=== PATIENT | female | born 1940 | race Hispanic/Latino ===

== ENCOUNTER 2017-07-30 09:17 | Outpatient (CLI) | payer MEDICARE, MEDICAID | END 2017-07-30 09:18 | disposition home or self-care (01) | LOC: CTENTCT 09:17 | PROVIDERS: ATTEND Otolaryngology Plastic Surgery within the Head & Neck | DX: J01.90 Acute sinusitis, unspecified (principal) | CPT/HCPCS: 70486 ==

== ENCOUNTER 2017-11-26 09:49 | Outpatient (CLI) | payer MEDICARE, MEDICAID ==
[~2017-11-26 09:49] MED LIST: ISOVUE-370 76%-LOCM 1 ML ONE
== END 2017-11-26 09:50 | disposition home or self-care (01) ==
LOC: BICCT 09:49
PROVIDERS: ATTEND Family Medicine
DX: R13.14 Dysphagia, pharyngoesophageal phase (principal); M54.2 Cervicalgia
CPT/HCPCS: 70491

== ENCOUNTER 2018-05-11 09:13 | Observation (INO) | payer MEDICARE, OTHER ==
[2018-05-11 09:46] LABS: #Eosinphils 0.1 thou/uL (0.0-0.7); #Lymphocytes 2.6 thou/uL (1.20-3.40); #Monocytes 0.5 thou/uL (0.11-0.59); #Neutrophils 3.3 thou/uL (1.40-6.50); %Basophils 0.6 % (0.0-1.0); %Eosinophils 1.2 % (0.0-10.0); %Lymphocytes 40.7 % (21.0-51.0); %Monocytes 7.2 % (0.0-10.0); %Neutrophils 50.3 % (42.0-75.0); Hemoglobin 16.6 g/dL (12.0-16.0); Mean Corpuscular HGB CONC 34.4 g/dL (32.0-36.0); Mean Corpuscular Hemoglobin 33.2 pg (27.0-31.0); Mean Corpuscular Volume 96.3 fL (78.0-98.0); Mean Platelet Volume 7.3 fL (7.4-10.4); Platelet Count 286 thou/uL (130-400); RBC Distribution Width 12.3 % (11.5-14.5); Red Blood Cell (RBC) Count 5.02 mill/uL (4.20-5.40); White Blood Cell (WBC) Count 6.5 thou/uL (4.8-10.8)
[2018-05-11] MEDS ORDERED: Aspirin Chewable 81 MG TAB ONE (10:00)
[2018-05-11] MEDS ORDERED: Nitroglycerin 2% Ointment 1 INCH/1 GM Packet ONE (10:01)
--- NOTE | 2018-05-11 10:10 | RAD ---
CHEST 1 VIEW: Date: 05/11/18 HISTORY: Palpitations. COMPARISON: 06/16/16. FINDINGS: Cardiac silhouette is magnified by projection. Pulmonary vasculature upper limits of normal. Mediasti num is midline. No lobar consolidation or evidence of pneumothorax. Elevation of the right humeral he ad has the appearance of a chronic rotator cuff tear. security monitor leads overlie the chest. IMPRESSION: Chronic-type findings as detailed above. No active cardiopulmonary abnormalities are demonstrated. POS: ELINOR
[2018-05-11 10:12] LABS: ALT (SGPT) 24 U/L (8-55); AST (SGOT) 19 U/L (5-34); Albumin 4.8 g/dL (3.4-4.8); Alkaline Phosphatase 104 U/L (40-150); Anion Gap 16 mmol/L (10-20); BUN (Urea Nitrogen) 12 mg/dL (9.8-20.1); Bilirubin, Total 0.7 mg/dL (0.2-1.2); CK (CPK) 82 U/L (29-168); Calc. Creatinine Clearance 0 mL/min (70-130); Calcium 10.6 mg/dL (7.8-10.44); Carbon Dioxide 23 mmol/L (23-31); Chloride 102 mmol/L (98-107); Estimated GFR-MDRD 75; Globulin 3.6 g/dL (2.4-3.5); Glucose 107 mg/dL (83-110); Lipase 38 U/L (8-78); Potassium 3.9 mmol/L (3.5-5.1); Protein, Total 8.4 g/dL (6.0-8.3); Sodium 137 mmol/L (136-145)
[2018-05-11] MEDS ORDERED: Acetaminophen 500 MG TAB ONE (10:26)
[2018-05-11] MEDS ORDERED: Nitroglycerin 0.4 MG TAB (25 Tab Bottle) PO PRN (12:10)
[2018-05-11] MEDS ORDERED: Bisacodyl 5 MG TAB PO PRN (12:10)
[2018-05-11] MEDS ORDERED: cloNIDine 0.1 MG TAB PO PRN (12:10)
[2018-05-11] MEDS ORDERED: hydrALAZINE 20 MG/ML VIAL SLOW IVP PRN (12:10)
[2018-05-11] MEDS ORDERED: Acetaminophen 325 MG TAB PO PRN (12:10)
[2018-05-11] MEDS ORDERED: Diabetic Tussin 200 MG/10 ML UDCUP PO PRN (12:10)
[2018-05-11] MEDS ORDERED: Senokot S 8.6-50 MG TAB PO PRN (12:10)
[2018-05-11] MEDS ORDERED: Ondansetron PF 4 MG/2 ML Vial IVP PRN (12:10)
[2018-05-11] MEDS ORDERED: Benzonatate 100 MG CAP PO PRN (12:10)
--- NOTE | 2018-05-11 13:06 | HP ---
PRIMARY CARE PHYSICIAN: Stacey Chase MD CHIEF COMPLAINT: Chest pressure, headache, and high blood pressure. HISTORY OF PRESENTING ILLNESS: Ms Ochoa is a very pleasant 77-year-old female with past medical history of hypertension and dyslipidemia, who presented to the emergency room with above-mentioned complaint. History is mainly obtained by the patient herself with the help of her granddaughter, who is interpreting for me. According to the granddaughter, the patient usually is very active and has been in her usual health, except for some cough for the last 2 or 3 weeks. She was seen by Dr. Chase only yesterday. This morning when she woke up, she complained of significant pain in the back of her head associated with some nausea and anxiety and chest pressure. Her granddaughter checked her blood pressure and was elevated to 170s/110s. The patient has not taken any of her blood pressure medications by then. She was brought to the emergency room because of uncontrolled hypertension and chest pressure. She reports that when she takes her blood pressure medications in the morning, she feels sick to her stomach. She was told by her primary care physician to space out these medications throughout the day, so she does not get too many side effects. In the emergency room, her initial workup is unremarkable. She has no EKG changes to suggest ST-T wave changes. Her initial cardiac enzymes are unremarkable. Her chest x-ray is unremarkable as well. She is now being admitted for further workup and rule out ACS. She has had a nuclear medicine stress test in June 2016, which was negative. She denies any other recent illnesses other than the cough. She does have some left upper abdominal pain, probably from excessive coughing. She also complains of some epigastric discomfort. Her granddaughter reports excessive anxiety, but otherwise, she is fairly healthy and active for her age. CODE STATUS: Full code discussed with the patient in extensive detail. For which, she wanted to be a do not resuscitate, but when she was explained about the meaning and difference of full code versus do not resuscitate: She chose to be a full code. PAST MEDICAL HISTORY: Gastritis, dyslipidemia, hypertension. PAST SURGICAL HISTORY: Appendectomy, cholecystectomy, hysterectomy, venous surgeries. FAMILY HISTORY: No significant family history of coronary artery disease. CODE STATUS: Full code. ALLERGIES: BACTRIM. HOME MEDICATIONS: 1. Losartan 25 mg daily. 2. Amlodipine 5 mg daily. 3. Cardizem extended release 120 mg daily. 4. Aspirin 81 mg daily. 5. Xanax unknown dose. 6. Possibly, cholesterol medication. REVIEW OF SYSTEMS: A 12-point review of system is done, it is negative except for those mentioned in the history and physical. LABORATORY DATA: Her CBC is unremarkable. Serum chemistries unremarkable. Troponin less than 0.010. BNP normal. Lipase normal. Chest x-ray by my review has no evidence to suggest any pleural effusion, edema, or infiltrate. She has appearance of a chronic rotator cuff tear injury on the right humeral head according to the radiologist. A 12-lead EKG by my review shows no acute ST or T-wave changes. Sinus rhythm. PHYSICAL EXAMINATION: VITAL SIGNS: Stable. Most recent blood pressure 137/67, heart rate in the 70s. Afebrile. Oxygen saturation 98% on room air. GENERAL: No acute distress. Awake, alert, and oriented x3. HEENT: Mucous membrane is moist and pink. No oropharyngeal exudate or erythema. Head is normocephalic and atraumatic. Pupils are equal and reactive to light and accommodation. Extraocular movement intact. NECK: Supple without any lymphadenopathy, JVD, or bruit. CHEST: Clear to auscultation without any wheezing, rales, or rhonchi. HEART: Rhythm is regular without any murmurs or gallops. ABDOMEN: Soft, nontender, nondistended. Positive bowel sounds. EXTREMITIES: Free of any cyanosis, clubbing, or edema. NEUROLOGIC: Nonfocal. SKIN: Free of any rashes or bruises. Feels warm and dry to touch. PSYCHIATRIC: Normal affect. IMPRESSION AND PLAN: 1. Chest pain, most likely secondary to uncontrolled hypertension. The symptoms are resolved quickly. She did get aspirin and nitroglycerin transdermal in the emergency room. Her blood pressure is under better control now. She is eager to go home. Because of multiple risk factors, we will keep her under observation and perform a nuclear medicine stress test. The patient's family is agreeable to that. We will restart her home medication, provide optimal blood pressure control. We will also check a lipid panel. 2. Uncontrolled hypertension. The patient will restart her home medication while she is here. As advised by her primary care physician, she should space out her blood pressure medication as she reports significant side effects. She was advised to take one blood pressure medication with each meal as all three of them are once a day dosing. She will also be treated with p.r.n. antihypertensives if necessary. 3. Dyslipidemia. Restart home medications once confirmed. 4. Abdominal epigastric discomfort. We will start her on proton pump inhibitor, most likely gastritis from daily dose of aspirin. 5. Left upper quadrant abdominal pain, most likely secondary to excessive coughing. This is a muscular pain. We will check a urinalysis to make sure she is not developing a urinary tract infection. 6. Deep venous thrombosis and gastrointestinal prophylaxis and walking program. 7. Code status; full code. DISPOSITION: Ms. Ochoa is currently being admitted to rule out ACS. Estimated length of stay is less than two midnights. Further management will depend upon her clinical course. She is hemodynamically stable. Job ID: [id number]
[2018-05-11 13:16] LABS: Troponin I Less than 0.010 ng/mL (< 0.028)
[2018-05-11 16:12] LABS: Troponin I Less than 0.010 ng/mL (< 0.028)
[2018-05-11 16:38] VITALS: BMI 29.7
[2018-05-11] MEDS ORDERED: ALPRAZolam 0.25 MG TAB PO PRN (16:48)
[2018-05-11] MEDS: Losartan 25 MG TAB PO SCH (17:04)
[2018-05-12 01:25] LABS: Bilirubin Negative (Negative); Blood, Urine Negative (Negative); Clarity CLEAR (Clear); Glucose, Urine (Dipstick) Negative (Negative); Leukocyte Negative (Negative); Nitrite Negative (Negative); Protein, Urine (Dipstick) Negative (Neg-Trace); Specific Gravity, Urine 1.008 (1.002-1.036); Urobilinogen 0.2 mg/dL (0.2-1.0)
[2018-05-12 01:28] LABS: Bacteria/HPF None Seen HPF (None Seen); Hyaline Casts/LPF 0-3 HYALINE CAST LPF (0-3 Hyaline); RBC/HPF 0-3 HPF (0-3); Squamous Epithelial None Seen HPF (0-3); WBC/HPF None Seen HPF (0-3)
[2018-05-12 05:58] LABS: Anion Gap 13 mmol/L (10-20); BUN (Urea Nitrogen) 15 mg/dL (9.8-20.1); Calc. Creatinine Clearance 62 mL/min (70-130); Calcium 9.7 mg/dL (7.8-10.44); Carbon Dioxide 27 mmol/L (23-31); Chloride 104 mmol/L (98-107); Estimated GFR-MDRD 71; Glucose 96 mg/dL (83-110); Potassium 4.5 mmol/L (3.5-5.1); Sodium 139 mmol/L (136-145)
[2018-05-12 06:27] LABS: Cardiac Risk 4.2 (Less than 4.5)
[2018-05-12] MEDS: Losartan 25 MG TAB PO SCH (08:10)
[2018-05-12] MEDS ORDERED: Aspirin 325 mg Enteric Coated Tablet PO SCH (09:00)
[2018-05-12] MEDS ORDERED: Fish Oil 1,000 MG CAP PO SCH (09:00)
[2018-05-12] MEDS ORDERED: Amlodipine 5 MG TAB PO SCH (09:00)
[2018-05-12] MEDS ORDERED: ADENOSINE 60 MG/20 ML VIAL ONE (10:21)
--- NOTE | 2018-05-12 18:26 | NM ---
MYOCARDIAL PERFUSION AND QUANTITATIVE GATED SPECT STUDY: HISTORY: Chest pain. DOSE: Technetium 99m Cardiolite 27.5 millicuries for the stress portion of the exam, and 9.6 millicuries fo r the resting portion of the exam. TECHNIQUE: The patient was stressed using 36.4 mg of adenosine, given IV. FINDINGS: Myocardial perfusion and quantitative gated SPECT study demonstrates no definite evidence of reversib le defects seen. No definite evidence of myocardial ischemia or scar seen. Ejection fraction measures 87%. IMPRESSION: Normal myocardial perfusion and quantitative gated SPECT study. POS: ELINOR
[2018-05-12 18:48] VITALS: BP 140/83; TEMP 98.1
[2018-05-12] MEDS ORDERED: ALPRAZolam 0.25 MG TAB PO SCH (21:00)
--- NOTE | 2018-05-13 13:43 | DIS ---
DATE OF ADMISSION: 05/11/2018 DATE OF DISCHARGE: 05/12/2018 CONDITION: At the time of discharge, stable and improved. DISCHARGE DIAGNOSES: 1. Chest discomfort secondary to uncontrolled hypertension, acute coronary syndrome, ruled out. 2. Uncontrolled hypertension. 3. Dyslipidemia. DISCHARGE MEDICATIONS: Discharge medications remain the same as the admission medications. No changes were made. No new medications. Please see my H and P for further details of the full list. She takes; 1. Losartan. 2. Aspirin. 3. Amlodipine. 4. Diltiazem daily. PROCEDURES DONE IN HOSPITAL: Nuclear medicine stress test, which is negative for any reversible or fixed ischemia. EF 87%. PRIMARY CARE PHYSICIAN: Stacey Chase MD HISTORY OF PRESENT ILLNESS: Ms. Ochoa is a very pleasant 77-year-old female with history of hypertension and dyslipidemia as well as anxiety, who presented to the ER with complaints of chest pressure, headache, and high blood pressure. She was quite hypertensive upon presentation with blood pressure 170s/110s. In the ER, she had normal EKG and cardiac enzymes within normal limit as well as negative chest x-ray for acute changes. She was admitted for rule out ACS and blood pressure control. Please see admission history and physical dictated by myself for further details. HOSPITAL COURSE: Ms. Ochoa was restarted on her blood pressure medications and had an uneventful hospital course. She underwent a nuclear medicine stress test to rule out ACS and serial cardiac enzymes were done. Both of them had normal results. Her blood pressure medications are spaced apart, so she takes one with each meal and not take them altogether. Her lipid panel did show poor control with triglycerides high at 183 and cholesterol at 222. As she is already on medication, she is instructed to modify her lifestyle and dietary habits. She was seen and examined prior to discharge and is asymptomatic and eager to go home. PHYSICAL EXAMINATION: VITAL SIGNS: Stable with blood pressure of 140/83, saturating 95% on room air, and heart rate 82. GENERAL: No acute distress. Lying comfortably in bed. CHEST: Clear to auscultation bilaterally. HEART: Rate and rhythm are regular. FOLLOWUP: She is instructed to follow up with primary care physician in 1 to 2 weeks. DISCHARGE PLAN: Discharge plan was discussed with the patient and her granddaughter present in the room and they verbalized understanding. Job ID: [id number]
== END 2018-05-12 18:52 | disposition home or self-care (01) ==
LOC: ERS 09:13 → ERHOLD 10:52 → 2SW 11:27
PROVIDERS: ADMIT Internal Medicine; ATTEND Internal Medicine
DX: I10 Essential (primary) hypertension (principal); E78.5 Hyperlipidemia, unspecified; K29.70 Gastritis, unspecified, without bleeding; Z90.49 Acquired absence of other specified parts of digestive tract; Z90.710 Acquired absence of both cervix and uterus; Z88.2 Allergy status to sulfonamides; Z79.82 Long term (current) use of aspirin; Z79.899 Other long term (current) drug therapy; Z98.890 Other specified postprocedural states
CPT/HCPCS: 71045; 78452; 80048; 80053; 80061; 81001; 82550; 83690; 83880; 84484 ×2; 85025; 93005; 93017; 94760; 97139; 99285; A9500; G0378 ×2; 36415; J0153

== ENCOUNTER 2018-05-21 07:50 | Outpatient (CLI) | payer MEDICARE, OTHER ==
[2018-05-21] MEDS ORDERED: ISOVUE-370 76%-LOCM 1 ML ONE (11:24)
--- NOTE | 2018-05-21 11:32 | CT ---
CT ABDOMEN AND PELVIS WITH ORAL AND IV CONTRAST: Date: 05/21/18 HISTORY: 77-year-old female with abdominal wall bulge and left-sided abdominal pain. COMPARISON: 06/16/16 and 04/12/16. FINDINGS: The lung bases are unremarkable. Changes of mild fatty infiltration of the liver again seen without f ocal mass or abnormal biliary ductal dilatation. The spleen, pancreas, and adrenal glands are normal. Tiny cysts in the kidneys are redemonstrated. The patient is post cholecystectomy, appendectomy, and hysterectomy. No free air, free fluid, or lymphadenopathy seen in the abdomen or pelvis. The small bowel loops are not abnormally dilated. There is colonic diverticulosis without evidence of diverticulitis. Vascular calcifications are present without evidence of aneurysmal dilatation of the abdominal aorta. There ar e degenerative changes in the spine. No abdominal wall hernia is identified. IMPRESSION: 1. Mild fatty infiltration of the liver. 2. Tiny renal cysts. 3. Colonic diverticulosis. 4. No evidence of abdominal wall hernia. POS: OFF
== END 2018-05-21 07:51 | disposition home or self-care (01) ==
LOC: BICCT 07:50
PROVIDERS: ATTEND Family Medicine
DX: R19.00 Intra-abdominal and pelvic swelling, mass and lump, unspecified site (principal); K57.30 Diverticulosis of large intestine without perforation or abscess without bleeding; N28.1 Cyst of kidney, acquired; K76.0 Fatty (change of) liver, not elsewhere classified
CPT/HCPCS: 74177; Q9966

== ENCOUNTER 2018-08-13 09:05 | Outpatient (CLI) | payer MEDICARE, MEDICAID ==
--- NOTE | 2018-08-13 12:37 | RAD ---
RADIOGRAPH RIGHT SHOULDER 3 VIEWS: 08/13/18 HISTORY: 77-year-old female with persistent subacute posttraumatic pain after fall one month ago. FINDINGS: No evidence of fracture. No dislocation. Severe DJD at AC joint. Moderate DJD at glenohumeral joint. IMPRESSION: 1. No fracture. 2. High grade osteoarthrosis. POS: TPC
--- NOTE | 2018-08-13 12:39 | RAD ---
RADIOGRAPH RIGHT ELBOW 4 VIEWS: 08/13/18 HISTORY: 77-year-old female with persistent posttraumatic elbow pain after fall one month ago. FINDINGS: No fracture or dislocation. Enthesophytes at medial and lateral epicondyles, dorsal surface of olecra non, and at coracoid process. IMPRESSION: 1. Mild enthesopathy. 2. Otherwise negative. POS: TPC
== END 2018-08-13 09:06 | disposition home or self-care (01) ==
LOC: BICRAD 09:05
PROVIDERS: ATTEND Family Medicine
DX: M25.511 Pain in right shoulder (principal); M25.521 Pain in right elbow; M19.011 Primary osteoarthritis, right shoulder; M77.9 Enthesopathy, unspecified

== ENCOUNTER 2019-05-31 10:05 | Observation (INO) | payer MEDICARE, MEDICAID ==
[2019-05-31] MEDS ORDERED: Nitroglycerin 2% Ointment 1 INCH/1 GM Packet ONE (10:37)
[2019-05-31] MEDS ORDERED: Aspirin Chewable 81 MG TAB ONE (10:37)
[2019-05-31] MEDS ORDERED: Metoprolol Tartrate 5 MG/5 ML VIAL ONE (10:37)
--- NOTE | 2019-05-31 10:44 | RAD ---
PORTABLE CHEST: HISTORY: Chest pain. COMPARISON: 05/11/2018 exam. FINDINGS: Heart size is within normal limits. There are atherosclerotic changes of the aorta. Lungs are clear of any infiltrative process. The bones are demineralized. Changes of a chronic rotator cuff tear o f the right shoulder are noted. IMPRESSION: No active intrathoracic disease. POS: TPC
[2019-05-31 10:49] LABS: #Eosinphils 0.1 thou/uL (0.0-0.7); #Monocytes 0.4 thou/uL (0.11-0.59); #Neutrophils 3.7 thou/uL (1.40-6.50); %Basophils 0.6 % (0.0-1.0); %Lymphocytes 31.8 % (21.0-51.0); %Monocytes 7.1 % (0.0-10.0); %Neutrophils 59.5 % (42.0-75.0); Hemoglobin 16.7 g/dL (12.0-16.0); Mean Corpuscular HGB CONC 33.7 g/dL (32.0-36.0); Mean Corpuscular Hemoglobin 33.1 pg (27.0-31.0); Mean Corpuscular Volume 98.3 fL (78.0-98.0); Mean Platelet Volume 7.7 fL (7.4-10.4); Platelet Count 245 thou/uL (130-400); RBC Distribution Width 11.8 % (11.5-14.5); Red Blood Cell (RBC) Count 5.05 mill/uL (4.20-5.40); White Blood Cell (WBC) Count 6.2 thou/uL (4.8-10.8)
[2019-05-31 11:19] LABS: ALT (SGPT) 97 U/L (8-55); AST (SGOT) 26 U/L (5-34); Alkaline Phosphatase 188 U/L (40-110); Anion Gap 14 mmol/L (10-20); BUN (Urea Nitrogen) 10 mg/dL (9.8-20.1); Bilirubin, Total 0.7 mg/dL (0.2-1.2); Calc. Creatinine Clearance 0 mL/min (70-130); Carbon Dioxide 24 mmol/L (23-31); Chloride 106 mmol/L (98-107); Estimated GFR-MDRD 75; Globulin 3.2 g/dL (2.4-3.5); Glucose 125 mg/dL (83-110); Lipase 38 U/L (8-78); Magnesium 2.1 mg/dL (1.6-2.6); Potassium 3.8 mmol/L (3.5-5.1); Protein, Total 8.2 g/dL (6.0-8.3); Sodium 140 mmol/L (136-145)
[2019-05-31 14:01] LABS: Troponin I Less than 0.010 ng/mL (< 0.028)
[2019-05-31 14:19] VITALS: BMI 26.5
[2019-05-31] MEDS ORDERED: hydrALAZINE 20 MG/ML VIAL SLOW IVP PRN (14:41)
[2019-05-31] MEDS ORDERED: Nitroglycerin 0.4 MG TAB (25 Tab Bottle) PO PRN (14:41)
[2019-05-31] MEDS ORDERED: Acetaminophen 325 MG TAB PO PRN (14:41)
[2019-05-31] MEDS: Sodium Chloride 0.9% 1,000 ML IV SCH (14:58)
--- NOTE | 2019-05-31 16:15 | ULT ---
US Abdominal: 05/31/2019 2:41 PM CLINICAL HISTORY: Epigastric pain. STUDY: Complete abdominal ultrasound COMPARISON: None. FINDINGS: Liver: Size: Normal. Echogenicity: Normal. Contour: Smooth. Mass: None. Common bile duct: 10 mm Gallbladder: Absent Pancreas: Head, body, and tail appear normal. Inferior vena cava: Normal in caliber Aorta: Normal in caliber Spleen: No focal lesions. Spleen measuring 7.8 cm in length. Right kidney: No pelvicalyceal dilatation. Right kidney measuring 8.8 cm in length. Left kidney: No pelvicalyceal dilatation. Left kidney measuring 9.5 cm in length. IMPRESSION: Enlargement of the common bile duct is likely a reservoir effect from prior cholecystectomy.
--- NOTE | 2019-05-31 16:16 | HP ---
PRIMARY CARE PHYSICIAN: Stacey Chase MD CHIEF COMPLAINT: Epigastric pain. HISTORY OF PRESENT ILLNESS: Ms. Ochoa is a very pleasant 78-year-old female, who has a history of hypertension as well as hyperlipidemia, which sounds like gastroesophageal reflux disease. She was in her usual state of health until today. She says she had eaten breakfast and about 15 to 20 minutes later, she started getting really dizzy, but notes that she has actually been fairly dizzy for the last 3 days. She started getting nauseated and noticed the pain in the epigastric region. She said it was radiating toward her back and then she had a little bit of shortness of breath. She rated it about 9/10 and as a result of the pain, she came to the emergency room. In the ER, they evaluated her and gave her 4 aspirin as well as placed a nitroglycerin paste and gave her metoprolol and she says that her symptoms started to get better. She also says that during this time, her blood pressure was high and her heart rate was fast as well. The patient also says that she has this other type of pain. It is in the lower part of her abdomen. She says this happens just about every day, but typically it goes away in just a few minutes. She says she has talked to Dr. Chase about it and she had done "a test" and told her that she had diverticulitis. She was told not to worry about it unless the pain got really bad or she had any fever. The patient also notes that she has had difficulty with swallowing. She says that at times the food seems to get stuck in her throat, even with water and she has noted that over the last 6 months to about a year. She says that she was in the process of getting a referral to have this looked at and there was a change in her doctors at that time and she never got a chance to have that appointment. Otherwise, she notes a chronic cough and some occasional neck pain, but otherwise no other complaints. REVIEW OF SYSTEMS: All systems were reviewed and are negative except for that mentioned in the history of present illness. PAST MEDICAL HISTORY: Significant for gastroesophageal reflux disease, hyperlipidemia, and hypertension. PAST SURGICAL HISTORY: She has had an appendectomy, cholecystectomy, hysterectomy, and surgery on her veins. ALLERGIES: SHE BELIEVES IT IS SULFA. SOCIAL HISTORY: She is a nonsmoker and nondrinker. She is . She says she had 7 children originally, but she only has 5 living children now and she recently lost her daughter back in September of last year. FAMILY HISTORY: Significant for coronary artery disease and diabetes mellitus. CURRENT MEDICATIONS: These are taken from the ER records as she says she does not know them and they are in the chart include; 1. Losartan 25 mg daily. 2. Amlodipine 5 mg daily. 3. Aspirin 81 mg daily. 4. Diltiazem 120 mg daily. 5. Alprazolam 0.5 as needed. 6. Pantoprazole 40 mg once a day. 7. Pravastatin 10 mg daily. PHYSICAL EXAMINATION: GENERAL: She is alert and oriented. She appears to be in no acute distress. She is well developed and well nourished. VITAL SIGNS: Blood pressure initially was 154/81, heart rate 116, respiratory rate of 18, and temperature is 98.4. HEENT: Pupils are equal, round, and reactive. Extraocular muscles are intact. Her sclerae are anicteric. Throat, no erythema, no exudates. NECK: No adenopathy. No bruits. LUNGS: Clear to auscultation. There is no wheezing, no rales, no rhonchi. CARDIOVASCULAR: She has a normal S1 and S2. There is no S3 or S4. She did have a very slight 2/6 systolic murmur. ABDOMEN: Soft and obese. She had some epigastric tenderness. There was no rebound, no guarding, no organomegaly. EXTREMITIES: She has trace pedal edema. There is no calf tenderness. No joint effusions. NEUROLOGIC: Grossly nonfocal. SKIN AND INTEGUMENT: No skin changes. No rash. LABORATORY DATA: White blood cell count 6.2, hemoglobin 16.7, hematocrit is 49.6, and platelet count is 245. D-dimer was 0.35. Sodium is 140, potassium 3.8, chloride is 106, CO2 is 24, BUN of 10, creatinine 0.75, glucose is 125, total bilirubin was 0.7, AST 26, ALT 97, and alkaline phosphatase 188. She had a chest x-ray showing no active disease. ASSESSMENT: Ms. Don Dawkins is a pleasant 78-year-old female, who presents with epigastric pain. She says that this happened fairly suddenly today, but it sounds like she has had progressive gastrointestinal symptoms over the past year with some dysphagia and feeling of the food getting stuck in the lower part of her esophagus; however, it was reported that her symptoms got better with aspirin and nitrates and she had some EKG changes with some T-wave inversions. Therefore, it is hard to determine the exact etiology of her symptoms. Therefore, will likely need to workup both cardiac as well as GI. She will be placed in observation. We will get a nuclear stress test to rule out ischemic heart disease. We will also get an abdominal ultrasound as the pain started after eating and it is also noted that her liver function tests are slightly elevated, she could potentially have a common duct stone and some of her symptoms also sound like esophageal stricture and for this reason, we will consult GI. 1. Hypertension. Her blood pressure appears to be fairly well controlled. While she is n.p.o., we will be using p.r.n. medicines and then once she is able to take n.p.o., we will switch her back to her home medications. 2. Depression. The patient was tearful when she talked about the loss of her daughter. There is no suicidal or homicidal ideation. She says she has discussed this with Dr. Chase. Dr. Chase had recommended that she be referred to a psychiatrist; however, she refused this. She does not feel she needs it. She says that it has only just recently happened, but she will be willing to take antidepressant medications. She said she was already on one. It appears this is an Ativan. We will add another medication such as an SSRI or SNRI for the depression symptoms. Job ID: [id number]
[2019-05-31 16:47] LABS: Troponin I Less than 0.010 ng/mL (< 0.028)
[2019-05-31] MEDS ORDERED: Sodium Chloride 0.9% (PF) 10 ML VIAL FS PRN (18:30)
[2019-05-31] MEDS: Pantoprazole 40 MG VIAL IVP SCH (20:30)
[2019-05-31] MEDS: Nitroglycerin 2% Ointment 1 INCH/1 GM Packet TOP SCH (20:30)
--- NOTE | 2019-05-31 21:30 | CON ---
DATE OF CONSULTATION: 05/31/2019 REASON FOR CONSULTATION: Dysphagia, epigastric abdominal pain. CONSULTING PROVIDER: Roberto Simon MD HISTORY OF PRESENT ILLNESS: The patient is a 78-year-old female with past medical history of GERD, hyperlipidemia, and hypertension, presenting with complaints of epigastric abdominal pain and dysphagia. She states that over the last year, the patient has been experiencing intermittent episodes of dysphagia characterized as the sensation that food is getting stuck at the level of the xiphoid process and it would occur with both solids and liquids (primarily broccoli, beans, lentils, meats and chicken) and would occur every time that she eats. She has tried acid suppression medication as well as taking bicarbonate, which only alleviates the symptom very mildly. She denies any episodes of food bolus impaction, but adds that this has slowly been progressively getting worse over the last year. She also endorses increased epigastric abdominal pain that has been present for the last 6 months and characterized as a pressure type sensation that would radiate to the generalized abdomen and reach a severity of 10/10. The pain is intermittent, is usually associated with ingestion of any food stuff, would last for approximately 10 minutes and spontaneously resolve. The pain is worse with eating (both solids and liquids), bending over and not having a bowel movement, better with eructation, use of Mylanta and bicarbonate. The patient continued to have any symptoms until earlier today when she had a sudden acute exacerbation of her epigastric/substernal chest pain that also was associated with increased dizziness that ultimately prompted her to seek healthcare assistance for possible myocardial infarction. She does endorse increased chronic cough substernal pyrosis, regurgitation, acid taste in her mouth and left lower quadrant pain associated with constipation. Otherwise, she denies any hematemesis, melena, hematochezia, nausea, vomiting, fevers, chills, weight loss, or diarrhea. While in the ER, the patient was evaluated for possible cardiac etiology of her chest pain with fairly normal EKG and negative troponins at this time. REVIEW OF SYSTEMS: A 10-category review of systems was obtained with all responses negative except for the pertinent positives as listed in HPI. PAST MEDICAL HISTORY: As per HPI. PAST SURGICAL HISTORY: Appendectomy, cholecystectomy, hysterectomy, and varicose vein surgery. FAMILY HISTORY: Denies any GI malignancies. SOCIAL HISTORY: Denies any tobacco, alcohol, or illicit drug use. OUTPATIENT MEDICATIONS: Reviewed. ALLERGIES: SULFA AND TRIMETHOPRIM SULFAMETHOXAZOLE. PHYSICAL EXAMINATION: VITAL SIGNS: Temperature 98.5, pulse 65, blood pressure 121/64, respiratory rate 15, saturating 95% on room air. GENERAL: The patient was lying in bed, in no acute distress. Alert and oriented x4, Sinhala-speaking only. HEENT: Normocephalic and atraumatic. NECK: Supple. No JVD or scleral icterus noted. CARDIOVASCULAR: Regular rate and rhythm with no discernible murmurs, gallops, or rubs. RESPIRATORY: Clear to auscultation bilaterally with no discernible wheezes or rales. ABDOMEN: Normoactive bowel sounds. Soft, nondistended. Tenderness to palpation in the left upper quadrant midepigastric and right upper quadrant. EXTREMITIES: No cyanosis, clubbing, or edema. LABORATORY DATA: CBC with a white blood cell count of 6.2, hemoglobin 16.7, hematocrit 49.6, platelets 245. Chemistry with a sodium of 140, potassium 3.8, chloride 106, CO2 of 24, BUN 10, creatinine 0.75, glucose 125, AST 26, ALT 97, alkaline phosphatase 188, total bilirubin 0.7, albumin 5, lipase 38. Troponins normal x2. IMAGING DATA: Abdominal ultrasound was obtained on May 31, 2019, which showed the common bile duct dilated to approximately 10 mm in size without the presence of gallbladder (surgical absence of the gallbladder). Otherwise, there were no other abnormalities. ASSESSMENT: The patient is a 78-year-old female with past medical history of gastroesophageal reflux disease, hyperlipidemia, and hypertension, presenting with acute onset of chest/worsening midepigastric pain and dysphagia consistent with gastroesophageal reflux disease. Gastroesophageal reflux disease. The patient is presenting with a longstanding history of both dysphagia and midepigastric abdominal pain over the last 6 to 12 months characterized as increased heartburn, regurgitation, acid taste in her mouth and more recently worsening dysphagia present at the level of the xiphoid process. She also endorses an increased colonic cough that could also be an element of acid reflux (per patient's daughter, she sometimes sleeps sitting up to help with her cough at night). She is currently on pantoprazole 40 mg daily, but has been taking the medication with or after food with an appropriate dosing of this particular medication. There is also some questionable compliance to avoiding trigger foods that may contribute to her current symptoms. At this time given her negative cardiac workup thus far, the more likely reason for her chest pain would also be acid reflux. Upon review of the patient's outpatient chart, she underwent upper endoscopy on October 26, 2017, which showed diffuse moderately erythematous mucosa found in the gastric antrum, but was otherwise normal. Pathology report showed chronic inactive gastritis without the presence of H pylori. Differential could include cardiac abnormality, gastroesophageal reflux disease, esophagitis, peptic ulcer disease, gastritis, and/or gastrointestinal neoplasm (much less likely). RECOMMENDATIONS: 1. We would place the patient on pantoprazole IV b.i.d. for probable acid reflux. 2. We would have the patient maintain more of an upright posture, especially after meals while inpatient given regurgitation and most likely acid reflux contributing to her symptoms. 3. We would proceed with cardiac stress test tomorrow for further evaluation of possible cardiac abnormality. 4. If the patient's stress test is negative, we could consider upper endoscopy either as an inpatient or as an outpatient for further workup of her dysphagia/GERD with the possibility of an esophageal stricture in the distal esophagus. 5. We would avoid any NSAIDs if deemed clinically appropriate. Job ID: [id number]
[2019-06-01 04:56] LABS: #Eosinphils 0.1 thou/uL (0.0-0.7); #Lymphocytes 2.7 thou/uL (1.20-3.40); #Monocytes 0.5 thou/uL (0.11-0.59); #Neutrophils 3.6 thou/uL (1.40-6.50); %Basophils 0.4 % (0.0-1.0); %Eosinophils 1.1 % (0.0-10.0); %Lymphocytes 39.4 % (21.0-51.0); %Monocytes 7.4 % (0.0-10.0); %Neutrophils 51.7 % (42.0-75.0); Hemoglobin 14.3 g/dL (12.0-16.0); Mean Corpuscular HGB CONC 34.9 g/dL (32.0-36.0); Mean Corpuscular Hemoglobin 34.8 pg (27.0-31.0); Mean Corpuscular Volume 99.8 fL (78.0-98.0); Platelet Count 211 thou/uL (130-400); RBC Distribution Width 11.7 % (11.5-14.5); Red Blood Cell (RBC) Count 4.12 mill/uL (4.20-5.40); White Blood Cell (WBC) Count 6.9 thou/uL (4.8-10.8)
[2019-06-01 05:22] LABS: Anion Gap 11 mmol/L (10-20); BUN (Urea Nitrogen) 16 mg/dL (9.8-20.1); Calc. Creatinine Clearance 60 mL/min (70-130); Calcium 9.1 mg/dL (7.8-10.44); Carbon Dioxide 23 mmol/L (23-31); Cardiac Risk 3.6 (Less than 4.5); Chloride 107 mmol/L (98-107); Cholesterol 152 mg/dl (< 200 Desired); Estimated GFR-MDRD 81; Glucose 101 mg/dL (83-110); HDL Cholesterol 42 mg/dL (>60 Neg Risk); LDL Cholesterol, Calculated 76 mg/dL; Potassium 3.9 mmol/L (3.5-5.1); Sodium 137 mmol/L (136-145); Triglycerides 169 mg/dL (Less than 150)
[2019-06-01] MEDS: Nitroglycerin 2% Ointment 1 INCH/1 GM Packet TOP SCH ×2 (06:08→14:45)
[2019-06-01] MEDS ORDERED: Enoxaparin Sodium 40 MG/0.4 ML SYRINGE SC SCH (09:00)
[2019-06-01] MEDS ORDERED: ADENOSINE 60 MG/20 ML VIAL ONE (09:35)
[2019-06-01] MEDS: Pantoprazole 40 MG VIAL IVP SCH (11:45)
[2019-06-01 12:19] VITALS: BP 117/64; TEMP 98.5
--- NOTE | 2019-06-01 12:25 | NM ---
NUCLEAR MEDICINE CARDIAC STRESS WITH EF AND WALL MOTION: HISTORY: Chest pain. TECHNIQUE: Patient was administered 9.9 mCi of technetium 99m sestamibi for rest imaging and 31.10 mC i of technetium 99m sestamibi for stress imaging. Cardiac gating was performed. FINDINGS: Homogeneous distribution of the radiotracer in the left ventricle. No reversibility or fixed defect. TID is 1.43. End-diastolic volume is 42 mL. End systolic volume is 6 mL. Cardiac gating: Normal wall motion and thickening. 87% ejection fraction. IMPRESSION: 1. No reversibility or fixed defect. 2. Normal wall motion and thickening. 87% ejection fraction. Transcribed Date/Time: 06/01/2019 1:03 PM
[2019-06-01] MEDS: Sodium Chloride 0.9% 1,000 ML IV SCH (13:21)
--- NOTE | 2019-06-01 13:57 | PDOC.HOSPP ---
- Subjective Encounter Date: 06/01/19 Encounter Time: 13:56 Subjective: Ms. Don Zhao was seen today in follow-up of epigastric pain. She says she feels better. No new complaints. She would like to go home. - Objective Vital Signs & Weight: Vital Signs (12 hours) Temp Pulse Resp BP Pulse Ox 06/01/19 11:57 98.5 F 72 16 117/64 97 06/01/19 07:12 98.4 F 95 16 133/74 94 L 06/01/19 04:05 98.4 F 62 16 111/62 95 Weight Admit Weight 127 lb Weight 127 lb I&O: 05/31/19 06/01/19 06/02/19 06:59 06:59 06:59 Intake Total 940 Output Total 980 Balance -40 Result Diagrams: 06/01/19 04:39 06/01/19 04:39 Hospitalist ROS - Medication Medications: Active Medications Generic Name Dose Route Start Last Admin Trade Name Freq PRN Reason Stop Dose Admin Sodium Chloride 1,000 mls @ 50 mls/hr 05/31/19 14:45 06/01/19 13:21 Normal Saline 0.9% IV Not Given .Q20H GUILHERME Nitroglycerin 0.5 inch 05/31/19 22:00 06/01/19 06:08 Nitro-Bid 2% Ointment TOP Not Given Q8HR GUILHERME Pantoprazole Sodium 40 mg 05/31/19 21:00 06/01/19 11:45 Protonix IVP 40 mg Q12HR GUILHERME Administration - Exam Eye: PERRL Heart: RRR, no murmur, no gallops, no rubs, normal peripheral pulses Respiratory: CTAB, no wheezes, no rales, no ronchi, normal chest expansion, no tachypnea, normal percussion Gastrointestinal: soft, non-tender, non-distended, normal bowel sounds, no palpable masses, no hepatomegaly Extremities: no cyanosis, no clubbing, no edema Hosp A/P (1) Epigastric pain Code(s): R10.13 - EPIGASTRIC PAIN Status: Acute (2) Dyslipidemia Code(s): E78.5 - HYPERLIPIDEMIA, UNSPECIFIED Status: Chronic (3) Essential hypertension Code(s): I10 - ESSENTIAL (PRIMARY) HYPERTENSION Status: Chronic - Plan * Epigastric pain- likely due to reflux * She says she would prefer to have the EGD done as an outpatient * She is stable for discharge home.
--- NOTE | 2019-06-01 21:26 | DIS ---
DATE OF ADMISSION: 05/31/2019 DATE OF DISCHARGE: 06/01/2019 DISCHARGE DISPOSITION: Home. PRIMARY DISCHARGE DIAGNOSES: 1. Epigastric pain. 2. Hypertension. 3. Dyslipidemia. 4. Gastroesophageal reflux disease. DISCHARGE MEDICATIONS: Include, 1. Protonix 40 mg daily. 2. Zoloft 50 mg daily. 3. Prednisone acetate one drop to each eye q.i.d. 4. Pravastatin 10 mg q.p.m. 5. [place]-3 fatty acids 1000 mg daily. 6. Losartan 25 mg p.o. daily. 7. Latanoprost one drop in each eye at bedtime. 8. Timolol one drop in each eye three times a day. 9. Diltiazem 120 mg extended release daily. 10. Cyclopentolate 1% drop into each eye twice daily. 11. Alphagan 1 drop in each eye three times a day. 12. Aspirin 81 mg daily. 13. Amlodipine 5 mg daily. 14. Xanax 0.5 mg at bedtime. CODE STATUS: Full code. ALLERGIES: TO SULFA. IMAGING AND PROCEDURES DONE DURING THE HOSPITAL STAY: The patient had an abdominal ultrasound and this was significant for the common duct being approximately 10 mm. The gallbladder was absent. Head of the pancreas looks normal. The patient had a nuclear stress test, in which there was no reversible or fixed defect noted. The ejection fraction was estimated at 87%. HOSPITAL COURSE: Ms. Don Dawkins is a very pleasant 78-year-old female, who presented to the hospital complaining of epigastric pain and some lower abdominal pain. Given her history of hypertension and dyslipidemia, there was concern that this could be cardiac in nature. She was placed in observation, ruled out and had a nuclear stress test, which was negative. She also had complaints of some epigastric pain as well, which occurred sometimes after eating and also had significant reflux and some symptoms of feeling like the food gets stuck in her throat. For this reason, we consulted Gastroenterology. She underwent abdominal ultrasound. This was essentially unremarkable and the plan was for her to continue on the Protonix and also some nonpharmacological management of the gastroesophageal reflux disease and then have an outpatient EGD scheduled. The patient is subsequently being discharged home and to have close followup with Dr. Chase in approximately 1 week and also the outpatient referral to GI. Job ID: [id number]
== END 2019-06-01 14:51 | disposition home or self-care (01) ==
LOC: ERS 10:05 → 2SW 11:47
PROVIDERS: ADMIT Internal Medicine; ATTEND Internal Medicine
DX: R10.13 Epigastric pain (principal); R13.10 Dysphagia, unspecified; R10.30 Lower abdominal pain, unspecified; I10 Essential (primary) hypertension; F32.9 Major depressive disorder, single episode, unspecified; K21.9 Gastro-esophageal reflux disease without esophagitis; E78.5 Hyperlipidemia, unspecified; Z79.82 Long term (current) use of aspirin; Z79.899 Other long term (current) drug therapy; Z88.2 Allergy status to sulfonamides
CPT/HCPCS: 71045; 78452; 80048; 80053; 80061; 83690; 83735; 83880; 84484 ×2; 85025 ×2; 85379; 93005; 93017; 93975; A9500; 36415; 96361; 96374; 96375; 96376; C9113; G0378; J0153

== ENCOUNTER 2019-10-14 09:39 | Outpatient (CLI) | payer MEDICARE, MEDICAID ==
--- NOTE | 2019-10-14 10:31 | BD ---
EXAM: DEXA bone density examination HISTORY: 39-year-old postmenopausal female for screening COMPARISON: None FINDINGS: L1--bone mineral density 0.853 g/sq cm; T score -1.2 L2--bone mineral density 0.865 g/sq cm; T score -1.5 L3--bone mineral density 0.954 g/sq cm; T score -1.2 L4--bone mineral density 0.904 g/sq cm; T score -1.4 Total L1-L4--bone mineral density 0.896 g/sq cm; T score -1.4 Left femoral neck--bone mineral density0.549; T score -2.7 Total proximal left femur--bone mineral density 0.718; T score -1.8 IMPRESSION: Osteoporosis.
== END 2019-10-14 09:40 | disposition home or self-care (01) ==
LOC: BICMAMMO 09:39
PROVIDERS: ATTEND Student in an Organized Health Care Education/Training Program
DX: Z13.820 Encounter for screening for osteoporosis (principal); M81.0 Age-related osteoporosis without current pathological fracture; Z78.0 Asymptomatic menopausal state
CPT/HCPCS: 77080

== ENCOUNTER 2019-11-23 14:32 | Emergency (ER) | payer MEDICARE, OTHER ==
[2019-11-23] MEDS ORDERED: Boostrix 0.5 ML VIAL ONE (14:47)
[2019-11-23] MEDS ORDERED: Bupivacaine 0.25% 10 ML VIAL ONE (15:18)
[2019-11-23 15:42] LABS: #Eosinphils 0.1 thou/uL (0.0-0.7); #Lymphocytes 2.4 thou/uL (1.20-3.40); #Monocytes 0.6 thou/uL (0.11-0.59); %Basophils 0.2 % (0.0-1.0); %Eosinophils 1.2 % (0.0-10.0); %Lymphocytes 26.3 % (21.0-51.0); %Monocytes 6.4 % (0.0-10.0); %Neutrophils 66.1 % (42.0-75.0); Hemoglobin 15.1 g/dL (12.0-16.0); Mean Corpuscular Volume 97.2 fL (78.0-98.0); Mean Platelet Volume 7.9 fL (7.4-10.4); Platelet Count 231 thou/uL (130-400); RBC Distribution Width 11.8 % (11.5-14.5); Red Blood Cell (RBC) Count 4.45 mill/uL (4.20-5.40); White Blood Cell (WBC) Count 9.1 thou/uL (4.8-10.8)
[2019-11-23 16:15] LABS: ALT (SGPT) 55 U/L (8-55); AST (SGOT) 131 U/L (5-34); Albumin 4.5 g/dL (3.4-4.8); Alkaline Phosphatase 166 U/L (40-110); Anion Gap 14 mmol/L (10-20); BUN (Urea Nitrogen) 18 mg/dL (9.8-20.1); Bilirubin, Total 0.7 mg/dL (0.2-1.2); Calc. Creatinine Clearance 0 mL/min (70-130); Calcium 9.5 mg/dL (7.8-10.44); Carbon Dioxide 23 mmol/L (23-31); Chloride 105 mmol/L (98-107); Estimated GFR-MDRD 77; Globulin 3.1 g/dL (2.4-3.5); Glucose 103 mg/dL (83-110); Potassium 4.1 mmol/L (3.5-5.1); Protein, Total 7.6 g/dL (6.0-8.3); Sodium 138 mmol/L (136-145)
[2019-11-23] MEDS ORDERED: Acetaminophen 500 MG TAB ONE (16:32)
--- NOTE | 2019-11-23 17:26 | CT ---
CT BRAIN WITHOUT CONTRAST: Indications: Fall with injury to head. Syncopal episode. Comparison: 06-16-16 FINDINGS: There is a large scalp hematoma seen over the right frontal bone extending to the right parietal prince on. There is no evidence of skull fracture. There is no evidence of intracranial hemorrhage. No evide nce of infarct or mass. IMPRESSION: 1. Scalp hematoma right frontoparietal region. 2. No evidence of acute intracranial injury. POS: [facility]
== END 2019-11-23 17:51 | disposition home or self-care (01) ==
LOC: ERS 14:32
DX: S01.01XA Laceration without foreign body of scalp, initial encounter (principal); E78.5 Hyperlipidemia, unspecified; E78.00 Pure hypercholesterolemia, unspecified; I10 Essential (primary) hypertension; F41.9 Anxiety disorder, unspecified; Z79.899 Other long term (current) drug therapy; W18.30XA Fall on same level, unspecified, initial encounter
CPT/HCPCS: 12004; 70450; 80053; 84484; 85025; 90471; 90715; 93005; S0020

== ENCOUNTER 2021-05-11 10:01 | Observation (INO) | payer MEDICARE, MEDICAID ==
[~2021-05-11 10:01] MED LIST changes: -ISOVUE-370 76%-LOCM 1 ML ONE; +Iopamidol-370 76% 500 ML 1 ML ONE
[2021-05-11 11:28] LABS: #Basophils 0.1 thou/uL (0.0-0.2); #Eosinphils 0.2 thou/uL (0.0-0.7); #Lymphocytes 2.3 thou/uL (1.20-3.40); #Monocytes 0.7 thou/uL (0.11-0.59); %Basophils 0.7 % (0.0-1.0); %Eosinophils 2.3 % (0.0-10.0); %Lymphocytes 31.9 % (21.0-51.0); %Monocytes 9.3 % (0.0-10.0); %Neutrophils 55.8 % (42.0-75.0); Hemoglobin 15.9 g/dL (12.0-16.0); Mean Corpuscular HGB CONC 33.4 g/dL (32.0-36.0); Mean Corpuscular Hemoglobin 33.8 pg (27.0-31.0); Mean Platelet Volume 7.5 fL (7.4-10.4); Platelet Count 273 thou/uL (130-400); RBC Distribution Width 11.9 % (11.5-14.5); White Blood Cell (WBC) Count 7.2 thou/uL (4.8-10.8)
[2021-05-11 11:30] LABS: Bilirubin Negative (Negative); Blood, Urine Negative (Negative); Clarity Clear (Clear); Glucose, Urine (Dipstick) Normal (Negative); Ketone, Urine Negative (Negative); Leukocyte Negative Leu/uL (Negative); Nitrite Negative (Negative); Protein, Urine (Dipstick) Negative (Neg-Trace); Specific Gravity, Urine 1.006 (1.002-1.036); Urobilinogen Normal mg/dL (Less than 2)
[2021-05-11 11:44] LABS: ALT (SGPT) 34 U/L (8-55); AST (SGOT) 26 U/L (5-34); Albumin 4.3 g/dL (3.4-4.8); Alkaline Phosphatase 79 U/L (40-110); Anion Gap 15 mmol/L (10-20); BUN (Urea Nitrogen) 14 mg/dL (9.8-20.1); Bilirubin, Total 0.9 mg/dL (0.2-1.2); Calc. Creatinine Clearance 0 mL/min (70-130); Calcium 9.8 mg/dL (7.8-10.44); Carbon Dioxide 23 mmol/L (23-31); Chloride 105 mmol/L (98-107); Globulin 3.7 g/dL (2.4-3.5); Glucose 107 mg/dL (83-110); Lipase 43 U/L (8-78); Magnesium 2.3 mg/dL (1.6-2.6); Sodium 139 mmol/L (136-145)
[2021-05-11] MEDS ORDERED: Aspirin Chewable 81 MG TAB ONE (11:59)
[2021-05-11] MEDS ORDERED: Lorazepam 2 MG/ML VIAL ONE (11:59)
[2021-05-11] MEDS ORDERED: Aspirin 325 MG TAB ONE (12:16)
[2021-05-11] MEDS ORDERED: Ondansetron PF 4 MG/2 ML Vial IVP PRN (13:21)
[2021-05-11] MEDS ORDERED: hydrALAZINE 20 MG/ML VIAL SLOW IVP PRN (13:21)
[2021-05-11] MEDS ORDERED: Ondansetron ODT 4 MG TAB PO PRN (13:21)
[2021-05-11 17:36] VITALS: BMI 28.1
[2021-05-11] MEDS: Acetaminophen 325 MG TAB PO PRN (18:59)
[2021-05-11] MEDS ORDERED: Melatonin 3 MG TAB PO PRN (20:10)
[2021-05-11 22:06] LABS: SARS-CoV-2 PCR by NAA Not Detected (NotDetected)
[2021-05-12 06:03] LABS: #Eosinphils 0.2 thou/uL (0.0-0.7); #Lymphocytes 2.6 thou/uL (1.20-3.40); #Monocytes 0.6 thou/uL (0.11-0.59); #Neutrophils 3.5 thou/uL (1.40-6.50); %Basophils 0.2 % (0.0-1.0); %Eosinophils 2.6 % (0.0-10.0); %Lymphocytes 37.8 % (21.0-51.0); %Monocytes 8.2 % (0.0-10.0); %Neutrophils 51.3 % (42.0-75.0); Hemoglobin 15.9 g/dL (12.0-16.0); Mean Corpuscular HGB CONC 33.4 g/dL (32.0-36.0); Mean Corpuscular Hemoglobin 33.6 pg (27.0-31.0); Mean Platelet Volume 7.4 fL (7.4-10.4); Platelet Count 268 thou/uL (130-400); RBC Distribution Width 11.9 % (11.5-14.5); Red Blood Cell (RBC) Count 4.74 mill/uL (4.20-5.40); White Blood Cell (WBC) Count 6.8 thou/uL (4.8-10.8)
[2021-05-12 06:22] LABS: Anion Gap 11 mmol/L (10-20); BUN (Urea Nitrogen) 12 mg/dL (9.8-20.1); Calc. Creatinine Clearance 63 mL/min (70-130); Calcium 9.2 mg/dL (7.8-10.44); Carbon Dioxide 25 mmol/L (23-31); Cardiac Risk 3.2 (Less than 4.5); Chloride 106 mmol/L (98-107); Cholesterol 168 mg/dl (< 200 Desired); Glucose 116 mg/dL (83-110); HDL Cholesterol 52 mg/dL (>60 Neg Risk); LDL Cholesterol, Calculated 93 mg/dL; Potassium 4.1 mmol/L (3.5-5.1); Sodium 138 mmol/L (136-145); Triglycerides 117 mg/dL (Less than 150)
[2021-05-12] MEDS ORDERED: Losartan 25 MG TAB PO SCH (09:00)
[2021-05-12] MEDS ORDERED: Aspirin 81 mg Enteric Coated Tablet PO SCH (09:00)
[2021-05-12] MEDS ORDERED: Fish Oil 1,000 MG CAP PO SCH (09:00)
[2021-05-12] MEDS ORDERED: FLU VACC QS2021-22(65YR UP)/PF 240 MCG/0.7 ML SYRINGE IM ONE (09:00)
[2021-05-12] MEDS ORDERED: Aspirin 325 mg Enteric Coated Tablet PO SCH (09:00)
[2021-05-12] MEDS ORDERED: Enoxaparin Sodium 40 MG/0.4 ML SYRINGE SC SCH (09:00)
[2021-05-12] MEDS: DorzolamidE/Timolol 2%/0.5% Ophth Soln 10 ml Bottle EA EYE SCH ×2 (10:07→14:32)
[2021-05-12] MEDS: Brimonidine Tartrate 0.2% Ophth Soln 5 ml Bottle L EYE SCH ×2 (10:07→14:31)
[2021-05-12] MEDS: prednisoLONE 1% Ophth Susp 5 ml Bottle EA EYE SCH ×3 (10:08→16:30)
[2021-05-12 16:00] VITALS: TEMP 97.7
[2021-05-12] MEDS: Acetaminophen 325 MG TAB PO PRN (16:20)
[2021-05-12 16:21] VITALS: BP 190/99
[2021-05-12] MEDS ORDERED: Latanoprost 0.005% Ophth Soln 2.5 ml Bottle L EYE SCH (21:00)
[2021-05-12] MEDS ORDERED: Simvastatin 5 MG TAB PO SCH (21:00)
== END 2021-05-12 18:05 | disposition home or self-care (01) ==
LOC: ERS 10:01 → NEURO 13:21
PROVIDERS: ADMIT Internal Medicine; ATTEND Internal Medicine
DX: M54.2 Cervicalgia (principal); R51.9 Headache, unspecified; R20.0 Anesthesia of skin; R42 Dizziness and giddiness; R07.89 Other chest pain; I10 Essential (primary) hypertension; E78.5 Hyperlipidemia, unspecified; E78.00 Pure hypercholesterolemia, unspecified; K21.9 Gastro-esophageal reflux disease without esophagitis; M47.812 Spondylosis without myelopathy or radiculopathy, cervical region; M50.21 Other cervical disc displacement, high cervical region; M48.02 Spinal stenosis, cervical region; E23.6 Other disorders of pituitary gland; Z23 Encounter for immunization; Z79.82 Long term (current) use of aspirin; Z79.899 Other long term (current) drug therapy; Z88.2 Allergy status to sulfonamides; Z20.822 Contact with and (suspected) exposure to COVID-19
CPT/HCPCS: 70450; 70496; 70498; 70551; 71045; 72040; 72141; 80048; 80061; 81003; 83690; 83735; 84484; 85025; 90662; 93005; 96374; 99285; G0008; U0003; U0005; 36415; 80053; 84443; 90471; 96372; 96375; G0378; J0360; J1650; J2060; Q9967

== ENCOUNTER 2021-11-09 09:48 | Outpatient (CLI) | payer MEDICARE, MEDICAID | END 2021-11-09 09:49 | disposition home or self-care (01) | LOC: BICMAMMO 09:48 | PROVIDERS: ATTEND Student in an Organized Health Care Education/Training Program | DX: M85.88 Other specified disorders of bone density and structure, other site (principal); Z78.0 Asymptomatic menopausal state | CPT/HCPCS: 77080 ==

== ENCOUNTER 2022-08-22 18:08 | Emergency (ER) | payer MEDICARE ==
[2022-08-22 20:31] LABS: #Basophils 0.1 thou/uL (0.0-0.2); #Eosinphils 0.1 thou/uL (0.0-0.7); #Monocytes 0.6 thou/uL (0.11-0.59); #Neutrophils 5.4 thou/uL (1.40-6.50); %Basophils 0.5 % (0.0-1.0); %Eosinophils 0.9 % (0.0-10.0); %Lymphocytes 34.4 % (21.0-51.0); %Monocytes 6.7 % (0.0-10.0); %Neutrophils 57.2 % (42.0-75.0); Hemoglobin 16.1 g/dL (12.0-16.0); Mean Corpuscular Hemoglobin 34.3 pg (27.0-31.0); Mean Corpuscular Volume 97.9 fl (78.0-98.0); Mean Platelet Volume 9.8 fL (7.4-10.4); Platelet Count 227 10x3/uL (130-400); RBC Distribution Width 12.2 % (11.5-14.5); White Blood Cell (WBC) Count 9.4 10x3/uL (4.8-10.8)
[2022-08-22 20:54] LABS: ALT (SGPT) 19 U/L (8-55); AST (SGOT) 20 U/L (5-34); Albumin 4.5 g/dL (3.4-4.8); Alkaline Phosphatase 86 U/L (40-110); Anion Gap 11 mmol/L (10-20); BUN (Urea Nitrogen) 14 mg/dL (9.8-20.1); Bilirubin, Total 0.8 mg/dL (0.2-1.2); Calc. Creatinine Clearance 0 mL/min (70-130); Carbon Dioxide 26 mmol/L (23-31); Chloride 105 mmol/L (98-107); Estimated GFR 80; Globulin 3.2 g/dL (2.4-3.5); Glucose 101 mg/dL (83-110); Potassium 4.1 mmol/L (3.5-5.1); Protein, Total 7.7 g/dL (5.8-8.1); Sodium 138 mmol/L (136-145)
[2022-08-22] MEDS ORDERED: Metoclopramide HCl 10 MG/2 ML VIAL ONE (21:24)
[2022-08-22] MEDS ORDERED: diphenhydrAMINE 50 MG/ML VIAL ONE (21:24)
[2022-08-22] MEDS ORDERED: Ketorolac Tromethamine 30 MG/ML VIAL ONE (21:24)
== END 2022-08-22 22:55 | disposition home or self-care (01) ==
LOC: ERS 18:08
DX: G44.201 Tension-type headache, unspecified, intractable (principal); E78.00 Pure hypercholesterolemia, unspecified; I10 Essential (primary) hypertension; Z79.899 Other long term (current) drug therapy; Z79.82 Long term (current) use of aspirin
CPT/HCPCS: 36415; 70450; 80053; 80061; 82306; 84484; 85025; 93005; 96365; 96368; 96375; J1200; J1885; J2765

== ENCOUNTER 2022-08-30 09:00 | Emergency (ER) | payer MEDICARE ==
[2022-08-30 09:23] LABS: #Eosinphils 0.1 thou/uL (0.0-0.7); #Monocytes 0.5 thou/uL (0.11-0.59); #Neutrophils 3.8 thou/uL (1.40-6.50); %Basophils 0.7 % (0.0-1.0); %Eosinophils 1.5 % (0.0-10.0); %Lymphocytes 28.6 % (21.0-51.0); %Monocytes 7.5 % (0.0-10.0); %Neutrophils 61.4 % (42.0-75.0); Hemoglobin 15.6 g/dL (12.0-16.0); Mean Corpuscular HGB CONC 35.1 g/dL (32.0-36.0); Mean Corpuscular Hemoglobin 34.4 pg (27.0-31.0); Mean Corpuscular Volume 98.2 fl (78.0-98.0); Mean Platelet Volume 9.8 fL (7.4-10.4); Platelet Count 221 10x3/uL (130-400); Red Blood Cell (RBC) Count 4.53 mill/uL (4.20-5.40); White Blood Cell (WBC) Count 6.1 10x3/uL (4.8-10.8)
[2022-08-30 09:49] LABS: ALT (SGPT) 15 U/L (8-55); AST (SGOT) 15 U/L (5-34); Albumin 4.4 g/dL (3.4-4.8); Alkaline Phosphatase 76 U/L (40-110); Anion Gap 12 mmol/L (10-20); BUN (Urea Nitrogen) 13 mg/dL (9.8-20.1); Bilirubin, Total 0.8 mg/dL (0.2-1.2); Calc. Creatinine Clearance 0 mL/min (70-130); Calcium 9.5 mg/dL (7.8-10.44); Carbon Dioxide 25 mmol/L (23-31); Chloride 106 mmol/L (98-107); Estimated GFR 79; Glucose 120 mg/dL (83-110); Potassium 4.3 mmol/L (3.5-5.1); Protein, Total 7.4 g/dL (5.8-8.1); Sodium 139 mmol/L (136-145)
[2022-08-30] MEDS ORDERED: Metoclopramide HCl 10 MG/2 ML VIAL ONE (12:28)
[2022-08-30] MEDS ORDERED: diphenhydrAMINE 50 MG/ML VIAL ONE (12:28)
[2022-08-30] MEDS ORDERED: Acetaminophen 500 MG TAB ONE (12:28)
[2022-08-30 12:51] LABS: Bacteria/HPF None Seen HPF (None Seen); Bilirubin Negative (Negative); Blood, Urine Negative (Negative); CAUTI Indications for Culture Dysuria,urgency,freq; Clarity Clear (Clear); Glucose, Urine (Dipstick) Normal (Negative); Ketone, Urine Negative (Negative); Leukocyte 25 Leu/uL (Negative); Nitrite Negative (Negative); Protein, Urine (Dipstick) Negative (Neg-Trace); RBC/HPF None Seen HPF (0-3); Specific Gravity, Urine 1.006 (1.002-1.036); Squamous Epithelial 0-3 HPF (0-3); Urobilinogen Normal mg/dL (Less than 2); WBC/HPF 0-3 HPF (0-3); pH, Urine 7.5 (5.0-9.0)
[2022-08-30 12:53] LABS: Urine Culture Reflex No No
== END 2022-08-30 16:02 | disposition home or self-care (01) ==
LOC: ERS 09:00
DX: R51.9 Headache, unspecified (principal); E78.00 Pure hypercholesterolemia, unspecified; I10 Essential (primary) hypertension; Z79.899 Other long term (current) drug therapy
CPT/HCPCS: 36415; 70450; 80053; 81001; 85025; 96365; 96375; J1200; J2765